=== PATIENT | male | born 1935 | race Caucasian/White ===

== ENCOUNTER 2023-11-07 12:32 | Observation (INO) ==
[2023-11-07 13:15] LABS: Basophils # (auto) 0.03 K/uL (0.00-0.20); Basophils % (auto) 0.4 %; Eosinophils # (auto) 0.13 K/uL (0.00-0.50); Eosinophils % (auto) 1.6 %; Hematocrit (blood only) 37.3 % (42.0-52.0); Hemoglobin 12.8 g/dl (14.0-18.0); Immature Granulocytes # (auto) 0.02 K/uL (0.01-0.20); Immature Granulocytes % (auto) 0.2 %; Lymphocytes # (auto) 0.94 K/uL (1.20-3.40); Lymphocytes % (auto) 11.4 %; Mean Corpuscular Hemoglobin 32.3 pg (25.0-34.0); Mean Corpuscular Hgb Conc 34.3 g/dL (32.0-36.0); Mean Corpuscular Volume 94.2 fL (80.0-100.0); Mean Platelet Volume 9.8 fL (9.4-12.4); Monocytes # (auto) 0.62 K/uL (0.11-0.59); Monocytes % (auto) 7.5 %; Neutrophils # (auto) 6.51 K/uL (1.40-6.50); Neutrophils % (auto) 78.9 %; Platelet Count 139 K/uL (130-400); RDW Coefficient of Variation 13.2 % (11.5-14.5); RDW Standard Deviation 45.7 fL (36.4-46.3); Red Blood Count 3.96 M/uL (4.70-6.10); White Blood Count 8.25 K/ul (4.8-10.8)
[2023-11-07 13:41] LABS: Albumin Level 4.1 gm/dl (3.4-5.0); Bilirubin Direct 0.2 mg/dl (0-0.2); Bilirubin,Total 0.9 mg/dl (0.2-1.0); Calcium 9.4 mg/dl (8.6-10.3); Creatinine Clr Calc Pharmacy 34.4 ml/min; Est GFR (African American) 52.8 ml/min; Est GFR (Non-African American) 45.6 ml/min; Potassium 4.4 mmol/L (3.5-5.1); Total Protein 6.8 gm/dl (6.0-8.3)
[2023-11-07 13:48] LABS: Troponin I High Sensitivity 7.2 pg/ml (0-20)
--- NOTE | 2023-11-07 13:54 | Emergency Department Note ---
Impression & Plan Weakness ED Provider Note NAME: JESSE WICK AGE: 88 SEX: M : 1935 ARRIVES VIA: Ambulance INFORMANT: Patient, ED PROVIDER(S): Karlee Dickerson MD CHIEF COMPLAINT: Weakness HPI: This is an 88-year-old male presenting for weakness. Patient is current with his daughter. He states at triage that "I feel like my body ". Nurse went to evaluate the patient the patient says is having trouble moving his arms and legs. He was nonsignificant answering questions upon my examination, just nodding yes and no. He was seen here about 2 days ago for somewhat similar symptoms including weakness and hypotension. Hypotension resolved prior to his arrival to the ER. Today patient just notes he feels weak all over. He declines any pain by shaking his head. He denies any urinary issues, constipation, chest pain, shortness of breath, fever or chills. His daughter does confirm this. ROS: See above HPI for pertinent positives & negatives. A total of 10 systems reviewed and were otherwise negative. PAST MEDICAL HISTORY: See Below PAST SURGICAL HISTORY: See Below FAMILY HISTORY: See Below SOCIAL HISTORY: See Below HOME MEDICATIONS: See Below ALLERGIES: See Below VITALS: See Below PHYSICAL EXAMINATION: General: resting comfortably in no acute distress Head: Normocephalic and atraumatic Eyes: Normal inspection, extraocular muscles intact Ear, nose, throat: Normal external exam Neck: Normal range of motion Respiratory: lungs clear to auscultation bilaterally Cardiovascular: Regular rate/rhythm, no murmur GI: soft, nontender, no guarding or rebound Extremities: nontender Neuro: Awake, shaking head yes and no, able to wiggle toes, move arms, strength 4/5 in upper extremities, 1/5 in lower extremities Skin: Warm, dry, and intact MEDICAL DECISION MAKING: This is a 88-year-old male presenting for weakness. Patient currently has no pain just overall body weakness. Patient reevaluated some hours later and he was comfortably resting. Upon awakening he is not able to move his legs more briskly, is talking in normal sentences does not appear confused. -CT head is negative -Lab work reviewed without any significant abnormalities -At this time unfortunately no clear abnormalities noted to explain his current symptoms. He does still appear fatigued and will require admission for these waxing and waning symptoms, believe patient requires further workup. Will [facility] to [facility]. Differential diagnosis: UTI, encephalopathy, sepsis, Guillain-Howard, transverse myelitis ER treatment provided: See below Diagnostics interpreted by me: ECG: None Cardiac Monitoring: An order was placed for continuous cardiac monitoring. The monitor shows a rate of 66 with sinus Laboratory studies: As stated above and show below. Imaging studies: See below. Past Med/Surg History Medical History (Updated 11/11/23 @ 10:19 by Karlee Dickerson MD) CAD (coronary artery disease) History of heparin-induced thrombocytopenia Per 05/10/22 vascular note AAA (abdominal aortic aneurysm) S/p endovascular repair (2014) with subsequent transcaval type 2 endoleak repair on 06/30/19. 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 Health record BPH (benign prostatic hyperplasia) Hyperlipidemia Hypertension Sleep apnea does not use CPAP since losing weight Kidney stone Ascending aortic aneurysm s/p ascending aorta replacement, AVR (bioprosthetic) (also had 2 vessel CABG at same time)- 10/2015 Surgical History History of cardioversion 07/2013 @ [facility] due to rapid a fib History of esophagogastroduodenoscopy (EGD) History of colonoscopy History of cardiac cath 07/2015 @ [facility]--no stents History of surgery 06/[address] [facility] [place] Embolization S/P percutaneous abdominal aortic aneurysm repair 06/[address] [facility] [place] History of thoracic aortic aneurysm repair 11/[address] [facility] [place] (same time as CABG) History of coronary artery bypass graft x 2 11/[address] [facility] [place] (with thoracic aortic aneurysm repair at same time) History of hemorrhoidectomy 11/2005 S/P AVR (aortic valve replacement) 10/[address] [facility] [place] History of arthroscopy of right knee History of lithotripsy History of tooth extraction full upper/lower denture Family History Other No family history of adverse response to anesthesia Social History Smoking Status: Never smoker Second Hand Exposure: No; Do You Dip or Chew Tobacco: No; Hx Alcohol Use: No Hx Substance Use: No Preferred Language: Algerian Communication Ability: Effective Eligibility Consultant Required: No Beliefs That Will Affect Care: None Current Living Situation: Spouse Feels Safe at Home: Yes Safety Concerns: Feels Safe At This Time Assistive Devices: None Allergies Allergies Allergy/AdvReac Type Severity Reaction Status Date / Time oxycodone Allergy Intermediate Hives in Verified 11/14/22 06:40 his throat heparin AdvReac Severe HIT Verified 11/07/23 18:24 CLAUDIA Inhibitors AdvReac Mild Cough Verified 11/14/22 06:40 Home Meds Home Medications Medication Instructions Recorded Confirmed acetaminophen 325 mg tablet 650 mg PO QID PRN Pain 11/07/22 11/07/23 aspirin 81 mg tablet 81 mg PO QAM 11/07/22 11/07/23 atorvastatin 80 mg tablet 80 mg PO HS 11/07/22 11/07/23 metoprolol succinate 25 mg 25 mg PO QAM 11/07/22 11/07/23 tablet,extended release 24 hr Results & Data (ED) Vital Signs Vital Signs - 24 hr 11/07/23 12:20 11/07/23 12:26 11/07/23 12:26 Temperature 36.6 C Temperature Source Oral Pulse Rate 68 Pulse Rate from SpO2 Sensor Respiratory Rate 14 Respiratory Effort / Characteristics Non-Labored Spontaneous Respiratory Depth Normal Normal Blood Pressure 150/121 H Blood Pressure Mean 130 Pulse Oximetry 98 96 Oxygen Delivery Method Room Air Room Air Sepsis Recent Fever Within 48 Hours No Sepsis New/Unexplained Change in Mental Status No Sepsis Action Taken by Nursing No Action Required 11/07/23 12:54 11/07/23 12:55 11/07/23 13:00 Temperature Temperature Source Pulse Rate 67 66 63 Pulse Rate from SpO2 Sensor 68 69 Respiratory Rate 10 L 15 Respiratory Effort / Characteristics Respiratory Depth Blood Pressure Blood Pressure Mean Pulse Oximetry 96 95 Oxygen Delivery Method Sepsis Recent Fever Within 48 Hours Sepsis New/Unexplained Change in Mental Status Sepsis Action Taken by Nursing 11/07/23 13:15 11/07/23 13:30 11/07/23 13:31 Temperature Temperature Source Pulse Rate 65 63 67 Pulse Rate from SpO2 Sensor 65 64 64 Respiratory Rate 19 11 L 13 Respiratory Effort / Characteristics Respiratory Depth Blood Pressure 153/101 H 161/109 H Blood Pressure Mean 118 126 Pulse Oximetry 93 95 97 Oxygen Delivery Method Sepsis Recent Fever Within 48 Hours Sepsis New/Unexplained Change in Mental Status Sepsis Action Taken by Nursing 11/07/23 14:00 11/07/23 14:30 Temperature Temperature Source Pulse Rate 67 65 Pulse Rate from SpO2 Sensor 66 66 Respiratory Rate 14 13 Respiratory Effort / Characteristics Respiratory Depth Blood Pressure 119/73 Blood Pressure Mean 88 Pulse Oximetry 95 96 Oxygen Delivery Method Sepsis Recent Fever Within 48 Hours Sepsis New/Unexplained Change in Mental Status Sepsis Action Taken by Nursing Laboratory Data 11/08/23 15:50 11/08/23 04:13 Lab Results 11/07/23 11/07/23 Range/Units 12:53 14:20 WBC 8.25 (4.8-10.8) K/ul RBC 3.96 L (4.70-6.10) M/uL Hgb 12.8 L (14.0-18.0) g/dl Hct 37.3 L (42.0-52.0) % MCV 94.2 (80.0-100.0) fL MCH 32.3 (25.0-34.0) pg MCHC 34.3 (32.0-36.0) g/dL RDW Std Deviation 45.7 (36.4-46.3) fL RDW Coeff of Soren 13.2 (11.5-14.5) % Plt Count 139 (130-400) K/uL MPV 9.8 (9.4-12.4) fL Immature Gran % (Auto) 0.2 % Neut % (Auto) 78.9 % Lymph % (Auto) 11.4 % [place] % (Auto) 7.5 % Eos % (Auto) 1.6 % Baso % (Auto) 0.4 % Neut # (Auto) 6.51 H (1.40-6.50) K/uL Lymph # (Auto) 0.94 L (1.20-3.40) K/uL [place] # (Auto) 0.62 H (0.11-0.59) K/uL Eos # (Auto) 0.13 (0.00-0.50) K/uL Baso # (Auto) 0.03 (0.00-0.20) K/uL Immature Gran # (Auto) 0.02 (0.01-0.20) K/uL Sodium 137 (136-145) mmol/L Potassium 4.4 (3.5-5.1) mmol/L Chloride 104 (98-107) mmol/L Carbon Dioxide 26 (21-32) mmol/L Anion Gap 7 (3-11) BUN 32 H (6-23) mg/dl Creatinine 1.39 (0.6-1.4) mg/dl Est Cr Clr Drug Dosing 34.4 ml/min Est GFR ( Amer) 52.8 ml/min Est GFR (Non-Af Amer) 45.6 ml/min BUN/Creatinine Ratio 23.0 H (10-20) Glucose 103 H (70-99(Fasting)) mg/dl Lactate 0.7 (0.4-2.0) mmol/L Calcium 9.4 (8.6-10.3) mg/dl Total Bilirubin 0.9 (0.2-1.0) mg/dl Direct Bilirubin 0.2 (0-0.2) mg/dl AST 14 (13-39) U/L ALT 9 (7-52) U/L Alkaline Phosphatase 81 (34-104) U/L Troponin I High Sens 7.2 D (0-20) pg/ml Total Protein 6.8 (6.0-8.3) gm/dl Albumin 4.1 (3.4-5.0) gm/dl Lipase 44 (11-82) U/L Administered Medications Discontinued Medications Aspirin (Aspirin 81 Mg Ectab) 81 mg PO QA CASANDRA Stop: 12/08/23 08:59 Last Admin: 11/08/23 08:34 Dose: 81 mg Documented By: KKS Atorvastatin Calcium (Atorvastatin 40 Mg Tab) 80 mg PO HS CASANDRA Stop: 12/07/23 20:59 Last Admin: 11/07/23 21:20 Dose: 80 mg Documented By: DMK Enoxaparin Sodium (Enoxaparin Inj 40 Mg/0.4 Ml Syr) 30 mg SQ Q24H CASANDRA Stop: 12/07/23 18:15 Last Admin: 11/08/23 04:19 Dose: Not Given Documented By: AKOSUA Gadobutrol (Gadobutrol 65ml Vial) 7.5 ml IV ONCE ONE Stop: 11/08/23 14:54 Last Admin: 11/08/23 14:54 Dose: 7.5 ml Documented By: JOHN Metoprolol Succinate (Metoprolol Succ 25mg Ext Rel Tab) 25 mg PO QAM [facility] Stop: 12/08/23 08:59 Last Admin: 11/08/23 08:34 Dose: 25 mg Documented By: DOLLY Terazosin HCl (Terazosin Hcl 5 Mg Cap) 5 mg PO HS CASANDRA Stop: 12/07/23 20:59 Last Admin: 11/07/23 21:20 Dose: 5 mg Documented By: AKOSUA Imaging Data Radiologist's Impression: Head CT 11/07/23 13:22 CT SCAN OF THE BRAIN WITHOUT IV CONTRAST CLINICAL HISTORY: Generalized weakness. Change in mental status. COMPARISON STUDY: No priors. TECHNIQUE: Unenhanced axial CT scan of the brain is performed from the vertex to the skull base. A dose lowering technique was utilized adhering to the principles of ALARA. CT DOSE: 547.75 mGy.cm FINDINGS: Brain parenchyma: There is age-related involutional change noting [id number] subcortical and periventricular microangiopathic disease. There is no hemorrhage, mass effect, or evidence of acute territorial ischemia by CT criteria. 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 Anders-white matter differentiation is preserved. No extra-axial fluid collection is seen. Ventricles, sulci, cisterns: Prominent secondary to involutional change. Intracranial vasculature: There is atherosclerotic calcification of the cavernous carotid arteries. Calvarium: Unremarkable. Sinuses and mastoids: The visualized paranasal sinuses are clear. The mastoid air cells are well pneumatized. Orbits: The bony orbits are grossly intact. IMPRESSION: There is no hemorrhage, mass effect, or evidence of acute territorial ischemia by CT criteria. ACT 112: Negative or not required by law. Electronically signed by: Jose Garcia M.D. 11/07/2023 2:13 PM Discharge Plan Visit Data Chief Complaint: Weakness Stated Complaint: UNABLE TO MOVE ED Provider: Karlee Dickerson Discharge Problem: Weakness Patient Disposition: Admitted As Inpatient Discharge Instructions Interventions: ED Discharge Assessment Last Done: 11/07/23 17:29
--- NOTE | 2023-11-07 14:14 | CT Scan Report ---
CT SCAN OF THE BRAIN WITHOUT IV CONTRAST CLINICAL HISTORY: Generalized weakness. Change in mental status. COMPARISON STUDY: No priors. TECHNIQUE: Unenhanced axial CT scan of the brain is performed from the vertex to the skull base. A do se lowering technique was utilized adhering to the principles of ALARA. CT DOSE: 547.75 mGy.cm FINDINGS: Brain parenchyma: There is age-related involutional change noting [id number] subcortical and pe riventricular microangiopathic disease. There is no hemorrhage, mass effect, or evidence of acute ter ritorial ischemia by CT criteria. A small chronic lacunar infarct is noted in the left cerebellar hem isphere. Anders-white matter differentiation is preserved. No extra-axial fluid collection is seen. Ventricles, sulci, cisterns: Prominent secondary to involutional change. Intracranial vasculature: There is atherosclerotic calcification of the cavernous carotid arteries. Calvarium: Unremarkable. Sinuses and mastoids: The visualized paranasal sinuses are clear. The mastoid air cells are well pneu matized. Orbits: The bony orbits are grossly intact. IMPRESSION: There is no hemorrhage, mass effect, or evidence of acute territorial ischemia by CT ter[place]. ACT 112: Negative or not required by law. Electronically signed by: Jose Garcia M.D. 11/07/2023 2:13 PM
--- NOTE | 2023-11-07 15:33 | History & Physical Report ---
Date of Service November 07, 2023 Assessment & Plan (1) Weakness: Plan: Ambulatory dysfunction Patient is 88-year-old male with PMH HTN, dyslipidemia, CAD s/p CABG, CKD III, AAA s/p repair, MARY, BPH, RBBB, history aortic valve replacement, history of atrial fibrillation s/p cardioversion, and others as below presented to ER with complaint of weakness. Upon arrival to ER staff report patient was able to move upper extremities however appeared very weak, and was only able to wiggle his toes and feet and was unable to lift his legs off the bed. During ER course patient now able to move all of extremities and feels is close to his baseline. He ambulated to bathroom with nurse without assistance. In ER vitals stable. No significant electrolyte abnormality. High-sensitivity troponin negative. 11/05/2023 TSH: 0.9 CT head: There is no hemorrhage, mass effect, or evidence of acute territorial ischemia by CT criteria. Obtain CXR to r/o pneumonia UA pending Blood cultures pending R/O TIA, CVA Tele to monitor for arrhythmias Lipids, A1c, CBC, BMP in a.m. MRI brain Ultrasound carotids carotids Echo with bubble study Fall precautions, aspiration precautions PT/OT consult Continue aspirin, atorvastatin Neurology consult (2) Hypertension: Plan: Stable Continue metoprolol succinate (3) Hyperlipidemia: Plan: Continue atorvastatin (4) CAD (coronary artery disease): Plan: S/P CABG Continue aspirin, atorvastatin, metoprolol succinate (5) Stage 3 chronic kidney disease: Plan: Cr: 1.39. Baseline 1.2 Monitor renal functions, avoid nephrotoxic agents for possible (6) Carotid stenosis, bilateral: Plan: 50-69% of the right ICA; <50% stenosis of the left ICA per 12/2021 carotid duplex Carotid duplex pending (7) BPH (benign prostatic hyperplasia): Plan: Continue terazosin (8) AAA (abdominal aortic aneurysm): Plan: S/P endovascular repair (2014) with subsequent transcaval type 2 endoleak repair on 06/30/19. DVT Prophylaxis SCDs DNR/DNI as per discussion with pt Follows with Dr Multani for routine care Pt was seen and care coordinated with Dr Miller. See addendum I spent a total of 76 minutes reviewing notes, outpatient records, labs, medication, coordinating, documenting and providing care for this patient excluding time spent in the performance of separately billed services. History of Present Illness Chief Complaint: Weakness Primary Care Provider: John Multani MD Patient is 88-year-old male with PMH HTN, dyslipidemia, CAD s/p CABG, CKD III, AAA s/p repair, MARY, BPH, RBBB, history aortic valve replacement, history of atrial fibrillation s/p cardioversion, and others as below presented to ER with complaint of weakness. History obtained from patient, patient's daughter, outpatient chart review. On 11/05/2023 patient was seen in urgent care for lightheadedness nausea and recorded BP there was 70/38 and patient was referred to ER. Was seen at [facility] ER on 11/05/2023 was given 500 mL NSS and BPs had improved after IVF and chest x-ray was without pneumonia, UA not consistent with infection, negative SARS-CoV-2, influenza and RSV PCR. Patient was discharged home. Patient states has been feeling at his baseline. Patient states woke up this morning and felt "wiped out". He was able to get himself dressed. He states he walked to his reclining chair. States when walking to chair felt a little lightheaded and had some nausea. Patient states that there a while and w as unable to move his legs to get up. He lives at home with elderly . Reports they called daughter who then called EMS. Upon arrival to ER staff report patient was able to move upper extremities however appeared very weak, and was only able to wiggle his toes and feet and was unable to lift his legs off the bed. Patient denies headache, vision changes, speech changes, dysphagia. He did not see any extremity pain. During ER course patient now able to move all of extremities and feels is close to his baseline. He ambulated to bathroom with nurse without assistance. Last BM couple days ago. Denies fever/chills, diaphoresis, vomiting, diarrhea, ROUSE, dizziness, syncope, neck pain, CP, SOB, orthopnea, palpitations, cough, sore throat, rhinorrhea, abdominal pain, paresthesias, extremity edema, rashes, urinary symptoms. Allergies Allergy/AdvReac Type Severity Reaction Status Date / Time oxycodone Allergy Intermediate Hives in Verified 11/14/22 06:40 his throat heparin AdvReac Severe HIT Verified 11/07/23 18:24 CLAUDIA Inhibitors AdvReac Mild Cough Verified 11/14/22 06:40 Home Medications Medication Instructions Recorded Confirmed Type acetaminophen 325 mg tablet 650 mg PO QID PRN Pain 11/07/22 11/07/23 History aspirin 81 mg tablet 81 mg PO QAM 11/07/22 11/07/23 History atorvastatin 80 mg tablet 80 mg PO HS 11/07/22 11/07/23 History metoprolol succinate 25 mg 25 mg PO QAM 11/07/22 11/07/23 History tablet,extended release 24 hr terazosin 5 mg capsule 5 mg PO HS 11/07/22 11/07/23 History tramadol 50 mg tablet 50 mg PO Q6H PRN Pain 11/07/22 11/07/23 History Past Med/Surg History Medical History (Updated 11/07/23 @ 17:39 by Tomeka Boswell PA-C) CAD (coronary artery disease) History of heparin-induced thrombocytopenia Per 05/10/22 vascular note AAA (abdominal aortic aneurysm) S/p endovascular repair (2014) with subsequent transcaval type 2 endoleak repair on 06/30/19. 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 [facility] assessment 2018 anesthesia record from [facility] 2018 showed Grade I view with Glidescope #4 Carotid stenosis, bilateral 50-69% of the right ICA; <50% stenosis of the left ICA per 12/2021 carotid duplex History of atrial fibrillation 2012 had cardioversion Poor historian pt unable to answer health care questions correctly, information obtained from [facility] record BPH (benign prostatic hyperplasia) Hyperlipidemia Hypertension Sleep apnea does not use CPAP since losing weight Kidney stone Ascending aortic aneurysm s/p ascending aorta replacement, AVR (bioprosthetic) (also had 2 vessel CABG at same time)- 10/2015 Surgical History History of cardioversion 07/2013 @ [facility] due to rapid a fib History of esophagogastroduodenoscopy (EGD) History of colonoscopy History of cardiac cath 07/2015 @ [facility]--no stents History of surgery 06/2019 @ [facility] [place] Embolization S/P percutaneous abdominal aortic aneurysm repair 06/2015 @ [facility] [place] History of thoracic aortic aneurysm repair 11/2015 @ [facility] [place] (same time as CABG) History of coronary artery bypass graft x 2 11/2015 @ [facility] [place] (with thoracic aortic aneurysm repair at same time) History of hemorrhoidectomy 11/2005 S/P AVR (aortic valve replacement) 10/2015 @ [facility] [place] History of arthroscopy of right knee History of lithotripsy History of tooth extraction full upper/lower denture Family History Other No family history of adverse response to anesthesia Social History Smoking Status: Never smoker Second Hand Exposure: No; Do You Dip or Chew Tobacco: No; Hx Alcohol Use: No Hx Substance Use: No Preferred Language: Bolivian Communication Ability: Effective Health Commissioner Required: No Beliefs That Will Affect Care: None Current Living Situation: Spouse Feels Safe at Home: Yes Safety Concerns: Feels Safe At This Time Assistive Devices: Denture - Upper, Glasses and Hearing Aid - Bilateral Review of Systems Review of Systems: All systems reviewed & are unremarkable except as noted in HPI & below Physical Exam Physical Exam: General: no distress, WDWN Head: normocephalic, atraumatic Eyes: PERRL, EOM's intact, conjunctiva non-injected, anicteric ENT: +hard of hearing, normal inspection external ears, nose, mucous membranes moist Neck: supple, trachea midline Lungs: clear, no respiratory distress, no wheezing/rhonchi/rales CV: RRR, no murmur, no pretibial edema Abd: normal BS, soft, non-tender Ext: no cyanosis, no calf tenderness Neuro: A&O x 3, normal affect, no nystagmus, facial sensation is intact and symmetric, face is strong and symmetric, soft palate elevates symmetrically, no dysarthria, shoulder shrug intact, tongue is midline, normal movement, no fasciculations. BUE 4/5 strength bilaterally, BLE 4/5 strength bilaterally, sensation to light touch intact Skin: warm, dry Results & Data Results & Data Vital Signs (Past 12 Hours) Vital Signs Temp Pulse Resp BP Pulse Ox O2 Del Method 11/07/23 14:30 65 13 119/73 96 11/07/23 14:00 67 14 95 11/07/23 13:31 67 13 161/109 H 97 11/07/23 13:30 63 11 L 95 11/07/23 13:15 65 19 153/101 H 93 11/07/23 13:00 63 15 95 11/07/23 12:55 66 11/07/23 12:54 67 10 L 96 11/07/23 12:26 96 Room Air 11/07/23 12:20 36.6 C 68 14 150/121 H 98 Room Air Laboratory Results Short CBC 11/07/23 Range/Units 12:53 WBC 8.25 (4.8-10.8) K/ul Hgb 12.8 L (14.0-18.0) g/dl Hct 37.3 L (42.0-52.0) % Plt Count 139 (130-400) K/uL BMP 11/07/23 12:53 Sodium 137 Potassium 4.4 Chloride 104 Carbon Dioxide 26 BUN 32 H Creatinine 1.39 Glucose 103 H Calcium 9.4 Liver Function 11/07/23 Range/Units 12:53 Total Bilirubin 0.9 (0.2-1.0) mg/dl Direct Bilirubin 0.2 (0-0.2) mg/dl AST 14 (13-39) U/L ALT 9 (7-52) U/L Alkaline Phosphatase 81 (34-104) U/L Albumin 4.1 (3.4-5.0) gm/dl Diagnostic Findings Head CT 11/07/23 13:22 CT SCAN OF THE BRAIN WITHOUT IV CONTRAST CLINICAL HISTORY: Generalized weakness. Change in mental status. COMPARISON STUDY: No priors. TECHNIQUE: Unenhanced axial CT scan of the brain is performed from the vertex to the skull base. A dose lowering technique was utilized adhering to the principles of ALARA. CT DOSE: 547.75 mGy.cm FINDINGS: Brain parenchyma: There is age-related involutional change noting [id number] subcortical and periventricular microangiopathic disease. There is no hemorrhage, mass effect, or evidence of acute territorial ischemia by CT criteria. 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 Anders-white matter differentiation is preserved. No extra-axial fluid collection is seen. Ventricles, sulci, cisterns: Prominent secondary to involutional change. Intracranial vasculature: There is atherosclerotic calcification of the cavernous carotid arteries. Calvarium: Unremarkable. Sinuses and mastoids: The visualized paranasal sinuses are clear. The mastoid air cells are well pneumatized. Orbits: The bony orbits are grossly intact. IMPRESSION: There is no hemorrhage, mass effect, or evidence of acute territorial ischemia by CT criteria. ACT 112: Negative or not required by law. Electronically signed by: Jose Garcia M.D. 11/07/2023 2:13 PM ECG Additional Comments: Sinus rhythm, PAC, RBBB, Nonspecific T wave abnormality anterior leads Supervising Physician Co-Signing Physician Notes Pt was seen and examined by myself, Mikala Miller MD on the day of service. Care was coordinated with Tomeka Boswell PA-C. 88yoM presenting with recurrent episodes of hypotension. Daughter at bedside notes that there might be a component of inadequate po intake at home. Orthostatic vitals added, continue with brain MRI and carotid dopplers. PT/OT Neurology consulted- appreciate further recs. Otherwise as above. I spent a total [id number] coordinating, documenting, and providing care for this patient excluding time spent in the performance of separately billed services
--- NOTE | 2023-11-07 16:21 | Electrocardiogram Report ---
Test Reason : Blood Pressure : / mmHG Vent. Rate : 067 BPM Atrial Rate : 067 BPM P-R Int : 138 ms QRS Dur : 120 ms QT Int : 426 ms P-R-T Axes : 030 -24 033 degrees QTc Int : 450 ms Sinus rhythm with Premature atrial complexes Low voltage QRS Right bundle branch block Abnormal ECG When compared with ECG of 05-NOV-2023 16:40, Premature atrial complexes are now Present Nonspecific T wave abnormality now evident in Anterior leads Confirmed by Nirav Hodgson ([id number]) on 11/07/2023 4:21:17 PM Referred By: REFERRED SELF Confirmed By:Nirav Hodgson
[2023-11-07] MEDS ORDERED: PHARMACIST DISCHARGE MED REC CONSULT PRN ×2 (18:16)
[2023-11-07] MEDS ORDERED: POLYETHYLENE (MIRALAX) 17 GM PACK PO PRN (18:16)
[2023-11-07] MEDS ORDERED: ACETAMINOPHEN 325 MG TAB PO PRN (18:16)
[2023-11-07] MEDS ORDERED: ONDANSETRON INJ 2 MG/ML 2 ML VIAL IV PRN (18:16)
[2023-11-07 20:18] LABS: Appearance Urine Clear (Clear); Bacteria Urine Automated Negative (Negative); Bilirubin Urine Negative (Negative); Blood Urine 1+ (Negative); Color Urine Yellow; Epithelial Cell Urine Auto 0-5 /lpf (0-5); Glucose Urine UA Negative (Negative); Ketones Urine Negative (Negative); Leukocyte Esterase Urine Negative (Negative); Nitrite Urine Negative (Negative); Protein Urine Negative (Negative); Specific Gravity Urine 1.019 (1.000-1.030); Urobilinogen Urine Negative (Negative); WBC Urine Automated 0 /hpf (0-5)
[2023-11-07] MEDS: ATORVASTATIN 40 MG TAB PO SCH (21:20)
[2023-11-07] MEDS: TERAZOSIN HCL 5 MG CAP PO SCH (21:20)
[2023-11-08] MEDS: ENOXAPARIN INJ 40 MG/0.4 ML SYR SQ SCH (04:19)
--- OUTSIDE RECORDS SUMMARY | 2023-11-08 04:27 | External Medical Summary | Summary of Care ---
Author Name Unknown Organization [facility] Address [address] [place] [address] Phone [phone] Care Team Providers Care Fire Investigation Manager Name Role Phone John Multani MD Primary Care Provider + Reason for Visit * Reason Comments Lightheadedness Encounter Details Date Type Department Care Team (Latest Contact Info) Description 11/05/2023 4:45 PM EDT Convenient Care Visit [facility] [address] [place] [address] Junior Betts PA-C [address] [place] [address] Lightheaded*; Hypotension, unspecified hypotension type Allergies Active Allergy Reactions Criticality Noted Date Comments Pavel Inhibitors Cough Low 06/02/2010 Heparin 10/26/2015 HIT Percocet Edema airway,Hives High 11/17/1999 Reports "hives of the airway" with difficulty breathing with Percocet. documented as of this encounter (statuses as of 11/05/2023) Medications Medication Sig Dispensed Refills Start Date End Date Status ASPIRIN 81 MG PO TABS 1 tab daily with food 0 Active amoxicillin (AMOXIL) 500 MG CapsuleIndications:SB E (subacute bacterial endocarditis) prophylaxis candidate Take 4 pills by mouth 30-60 minutes prior to dental work 4 Cap 3 02/23/2016 Active CPAP every night at bedtime. 0 Active Terazosin HCl 5 MG Oral Capsule (Hytrin)Indications:I ncomplete bladder emptying,BPH with obstruction/lower urinary tract symptoms Take 1 Capsule by mouth at bedtime. 90 Capsule 3 10/25/2022 Active Metoprolol Succinate ER 25 MG Oral Tablet Extended Release 24 Hour (toPROL XL)Indications:Thorac ic ascending aortic aneurysm (HCC),Chronic ischemic heart disease One tablet by mouth daily 90 Tablet 3 11/13/2022 Active oxyCODONE-Acetaminoph en 5-325 MG Oral Tablet (Percocet) 1 TAB orally every 6 hours As Needed for pain 20 Tablet 0 11/14/2022 Active COVID-19 mRNA Vaccine 12 years and above Pfizer 30 MCG/0.3 ML IM SUSP Inject into a large muscle. 0.3 mL 0 05/22/2023 Active Atorvastatin Calcium 80 MG Oral Tablet (Lipitor)Indications: Dyslipidemia, goal LDL below 100 Take 1 Tablet by mouth every afternoon. 90 Tablet 1 07/30/2023 Active traMADol HCl 50 MG Oral Tablet (Ultram)Indications:P ain,Spinal stenosis of lumbar region, unspecified whether neurogenic claudication present Take 1 Tablet by mouth every 6 hours as needed for Pain, Severe. 90 Tablet 0 09/04/2023 Active Hospital, Clinic, or Other Facility Administered Medication Ordered Dose Route Frequency Start Date End Date Status NSS 0.9% 1,000 mL bolus infusionIndications:Lighthe aded,Hypotension, unspecified hypotension type 1000 mL IV ONCE 11/05/2023 11/06/2023 Active documented as of this encounter (statuses as of 11/05/2023) Active Problems Problem Noted Date Diagnosed Date Status post endovascular aneurysm repair (EVAR) 05/23/2023 Inguinal adenopathy 10/04/2022 Groin pain, right 10/04/2022 RBBB (right bundle branch block) 10/02/2022 Chronic kidney disease, stage 3a 12/21/2020 Overview: Per CKD protocol 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 John Vazquez (Jasbir Grain) is grandson. S/P percutaneous abdominal aortic aneurysm repai r 11/16/2017 SBE (subacute bacterial endocarditis) prophylaxi s candidate 02/23/2016 S/P thoracic aortic aneurysm repair 11/19/2015 S/P CABG x 2 11/19/2015 S/P AVR (aortic valve replacement) 11/09/2015 Difficult intubation 10/31/2015 History of heparin-induced thrombocytopenia 03/2016 BPH with obstruction/lower urinary tract symptom s 05/06/2015 PAVEL inhibitor intolerance 05/06/2015 Spermatocele 02/25/2014 History of atrial fibrillation 08/06/2013 Overview: [facility]: DC cardioversion back to NSR, associated with GI bleed CPAP (continuous positive airway pressure) gabriella andrade 10/27/2012 MARY (obstructive sleep apnea) 07/30/2012 Overview: RDI on baseline 05/16/12 was 61. Desaturations to 67% during REM, DME PREFABRICATOR, CPAP set at 14 cm C Flex at 2 Hypoxia, sleep related 06/04/2012 Essential hypertension with goal blood pressure less than 140/90 05/12/2010 Metabolic syndrome 07/23/2009 DYSLIPIDEMIA, GOAL LDL BELOW 100 07/22/2009 Overview: Per Lipid Taxonomy. Hyperpotassemia 05/21/2009 CHR ISCHEMIC HRT DIS NOS 04/08/2009 Overview: PAVEL intolerant. ADVANCE DIRECTIVE INFORMATION 10/15/2007 Overview: Yes, Patient instructed to provide copy of advance directive for provider to review and to be scanned into Electronic Medical Record AAA (abdominal aortic aneurysm) documented as of this encounter (statuses as of 11/05/2023) Resolved Problems Problem Noted Date Diagnosed Date Resolved Date Endoleak of aortic graft 06/30/2019 Hypertensive kidney disease with chronic kidney disease stage III 11/07/2018 06/24/2020 Overview: Per CKD protocol Kidney disease, chronic, sta ge III (GFR 30-59 ml/min) 01/22/2018 12/25/2018 Overview: Per CKD protocol #1 Gouty arthropathy 11/16/2017 11/16/2017 Overview: error Hypertrophy of prostate with urinary obstruction and other lower urinary tract symptoms (LUTS) 02/25/2014 05/06/2015 Pre-operative cardiovascular examination 05/14/2013 06/16/2016 PAVEL inhibitor intolerance 06/02/2010 Overview: Lisinopril caused cough Severe obesity with body mas s index (BMI) of 35.0 to 39.9 with serious comorbidity 11/08/2009 Overview: Per Obesity Taxonomy ICD-10 update of inactive diagnosis Dyslipidemia, goal to be determined 04/28/2009 07/22/2009 Overview: Per Lipid Taxonomy. HTN, goal below 140/90 08/24/200405/12 History of colonic polyps 09/03/2002 Overview: Repeat 2008 ICD-10 update of inactive term ELEV BL PRES W-O HYPERTN 07/09/200207/2004 Overview: has hypertension Positive hemoccult time three 07/09/2002 09/03/2002 Chronic rhinitis 12/03/2000 12/15/2016 Obstructive sleep apnea 10/04/2000 1111/2015 OBESITY, UNSPECIFIED 10/04/2000 010 Overview: Per Obesity Taxonomy Calculus of kidney 9 Thoracic ascending aortic aneurysm 11/16/2017 documented as of this encounter (statuses as of 11/05/2023) Immunizations Name Administration Dates Next Due COVID-19 mRNA, LNP-s, No Pre serve, 2-Dose Series (Moderna) 09/08/2020 COVID-19, MRNA-LNP, 23-24, P F, 30 MCG/0.3 mL, 12 YRS AND ABOVE, IM (PFIZER-Comirnaty) 05/23/2023 Covid-19, Mrna, Lnp-s, Pf, B ivalent, 30 Mcg, IM, 12 yrs and above (Pfizer) 05/26/2022 H1N1 2009 Influenza, IM 09/07/2009 Pneumococcal Conjugate Vacc, 13 Valent (Prevnar) 05/06/2015 Pneumococcal Polysaccharide PPV23 (Pneumovax) 06/24/2007 Season Influenza, Quad, PF, Adjuvanted, 65+ Yrs, IM (FLUAD) 05/21/2020 Seasonal Influenza, PF, 6 M & above, IM , (FluLaval or Fluzone) 06/05/2018,06/01/2017 Seasonal Influenza, Quadriva lent Hd (Fluzone Hd) 05/03/2023,05/09/2022,06/07/2021 Seasonal Influenza, Quadriva lent, No Preserve, IM 06/16/2016,06/15/2015 Seasonal Influenza, Split, I IV3, With Preserve, Inj 07/06/2014,07/03/2013,04/24/2012,06/01,05/12/2010,05/20/2009,06/25/2008 ,06/24/2007,06/08/2006 Seasonal Influenza, Trivalen t, Adjuvanted, 65+ yrs 05/10/2019 TDAP (age 10 and older)(Boostrix) 11/11/2021 TDAP (age 11 and older)(Adacel) 10/09/2011 Varicella Zoster Vaccine (Adult) 06/27/2012 Zoster Vaccine Recombinant (Shingrix) 07/24/2019 ,05/23/2019 documented as of this encounter Social History Tobacco Use Types Packs/Day Years Used Date Smoking Tobacco: Never Passive Smoke Exposure: Yes Smokeless Tobacco: Former Chew Quit: 08/13/1989 Comments:used to chew, uses a soybean chew Alcohol Use Standard Drinks/Week Comments Yes 0 (1 standard drink = 0.6 oz pur e alcohol) occ. social, no beer x 8 weeks PHQ-2 Answer Date Recorded PHQ-2 Score 0 05/22/2019 Hunger Vital Sign Answer Date Recorded Worried About Running Out of Food in the Last Ye ar Never true 05/22/2019 Ran Out of Food in the Last Year Never true 05/22/2019 Sex and Gender Information Value Date Recorded Sex Assigned at Not on file Gender Identity Not on file Sexual Orientation Not on file Job Start Date Occupation Industry Not on file Not on file Not on file documented as of this encounter Last Filed Vital Signs Vital Sign Reading Time Taken Comments Blood Pressure 70/38 11/05/2023 3:38 PM EDT Pulse 80 11/05/2023 3:38 PM EDT Temperature - - Respiratory Rate 18 11/05/2023 3:38 PM EDT Oxygen Saturation 96% 11/05/2023 3:38 PM EDT Inhaled Oxygen Concentration - - Weight 76.2 kg (168 lb) 11/05/2023 3:38 PM EDT Height 170.2 cm (5' 7") 11/05/2023 3:38 PM EDT Body Mass Index 26.31 11/05/2023 3:38 PM EDT documented in this encounter Functional Status Functional Status Response Date of Assess ment Are you deaf or do you have serious difficulty h earing? No 10/25/2015 Are you blind or do you have serious difficulty seeing, even when wearing glasses? No 10/25/2015 Do you have serious difficul ty walking or climbing stairs? (5 years old or older) No 10/25/2015 Do you have difficulty dress ing or bathing? (5 years old or older) No 10/25/2015 Because of a physical, menta l, or emotional condition, do you have difficulty doing errands alone such as visiting a doctor s office or shopping? (15 years old or older) No 10/25/19 16 Cognitive Status Response Date of Assessm ent Because of a physical, menta l, or emotional condition, do you have serious difficulty concentrating, remembering, or making decisions? (5 years old or older) No 10/25/2015 documented as of this encounter Progress Notes * Junior Betts PA-C - 11/05/2023 4:42 PM EDT Nursing Notes: Pily Flores, LAURENT 11/05/23 1543 Signed Patient presents to the clinic for evaluation. Patient reports feeling light headedness and nausea along with, "bugs crawling on my skin". These symptoms started at 0400. Gustavo Linares is a 88 year old male with a PMH of hyperpotassemia, MARY on CPAP, HTN, AAA, Carotid stenosis, RBBB, CKD3a, S/P AVR, S/P Thoracic abdominal aorita aneurysm repair, s/p CABG x 2 that presents for Lightheadedness Dizziness Quality: Lightheadedness Severity: Moderate Onset quality: Unable to specify Duration: 1 day Timing: Constant Progression: Waxing and waning Chronicity: New Context: not when bending over, not with bowel movement, not with ear pain, not with eye movement, not with head movement, not with inactivity, not with loss of consciousness, not with medication, not with physical activity, not when standing up and not when urinating Relieved by: Nothing Worsened by: Nothing Ineffective treatments: Fluids Associated symptoms: nausea and weakness Associated symptoms: no blood in stool, no chest pain, no diarrhea, no headaches, no hearing loss, no palpitations, no shortness of breath, no syncope, no tinnitus, no vision changes and no vomiting Associated symptoms comment: And see nurse note Objective BP 70/38 (BP Site: Left Arm, BP Position: Sitting, BP Cuff Size: Regular) | Pulse 80 | Resp 18 | Ht1.702 m (5' 7") | Wt 76.2 kg (168 lb) | SpO2 96% | BMI 26.31 kg/m | BSA 1.9 m Body mass index is 26.31 kg/m. BP Readings from Last 3 Encounters: 11/05/23 70/38 05/23/23 122/60 10/24/22 95/67 Wt Readings from Last 3 Encounters: 11/05/23 76.2 kg (168 lb) 05/23/23 78.9 kg (174 lb) 10/24/22 74.8 kg (165 lb) Physical Exam Vitals and nursing note reviewed. Constitutional: General: He is not in acute distress. Appearance: Normal appearance. He is not ill-appearing, toxic-appearing or diaphoretic. HENT: Head: Normocephalic and atraumatic. Right Ear: External ear normal. Left Ear: External ear normal. Nose: Nose normal. No congestion or rhinorrhea. Mouth/Throat: Mouth: Mucous membranes are moist. Pharynx: Oropharynx is clear. No oropharyngeal exudate or posterior oropharyngeal erythema. Eyes: General: No scleral icterus. Extraocular Movements: Extraocular movements intact. Conjunctiva/sclera: Conjunctivae normal. Pupils: Pupils are equal, round, and reactive to light. Neck: Vascular: No carotid bruit. Cardiovascular: Rate and Rhythm: Normal rate and regular rhythm. Heart sounds: No murmur heard. No friction rub. No gallop. Pulmonary: Effort: Pulmonary effort is normal. No respiratory distress. Breath sounds: No wheezing, rhonchi or rales. Chest: Chest wall: No tenderness. Abdominal: General: Abdomen is flat. Bowel sounds are normal. There is no distension. Palpations: Abdomen is soft. Tenderness: There is no abdominal tenderness. There is no guarding or rebound. Musculoskeletal: General: No swelling or tenderness. Normal range of motion. Cervical back: Normal range of motion and neck supple. No rigidity. No muscular tenderness. Right lower leg: No edema. Left lower leg: No edema. Lymphadenopathy: Cervical: No cervical adenopathy. Skin: General: Skin is warm and dry. Capillary Refill: Capillary refill takes less than 2 seconds. Neurological: General: No focal deficit present. Mental Status: He is alert and oriented to person, place, and time. Motor: Weakness present. Gait: Gait abnormal. Psychiatric: Mood and Affect: Mood normal. Behavior: Behavior normal. Thought Content: Thought content normal. Judgment: Judgment normal. Results for orders placed or performed in visit on 11/05/23 GLUCOSE METER, POINT OF CARE (ENTER/EDIT) Result Value Ref Range Glucose Meter Result 155 70 - 120 mg/dL *Note: Due to a large number of results and/or encounters for the requested time period, some results have not been displayed. A complete set of results can be found in Results Review. Assessment and plan 1. Lightheaded - EKG; Future - GLUCOSE METER, POINT OF CARE (ENTER/EDIT) - EKG - NSS 0.9% 1,000 mL bolus infusion 2. Hypotension, unspecified hypotension type - EKG; Future - GLUCOSE METER, POINT OF CARE (ENTER/EDIT) - EKG - NSS 0.9% 1,000 mL bolus infusion Symptomatic hypotension. EMS called for further work-up and treatment at ER. To be transferred via EMS. EKG done today shows NSR with "sinus arrhythmia at rate of [address] changes, but T wave amplitude in latera leads. RSR' in V1 suggests R ventricular conduction delay. Inferior infarct, age undetermined. When compared to EKG on 09/2022, RSR' pattern in V1 has replaed RBBB. Nonspecific T wave abnormalitynow evident in anterior leads. T wave amplitude has increased in latera leads. Unclear if 2/2 heart, poor PO intake, or other etiology Recheck of VS showed BP 60/38, worsening weakness. Will start NSS bolus. EMS arrived prior to IV start being completed. Report given and care transferred. Follow up To ER Via EMS The above was discussed and understanding was expressed. Junior Betts PA-C documented in this encounter Nursing Notes * Pily Flores LPN - 11/05/2023 3:41 PM EDT Patient presents to the clinic for evaluation. Patient reports feeling light headedness and nausea along with, "bugs crawling on my skin". These symptoms started at 0400. documented in this encounter Plan of Treatment Upcoming Encounters Date Type Department Care Team (Late st Contact Info) Description 12/21/2023 10:00 AM EDT Office Visit Family Practice [facility] [address] [facility] [place] [address] Lizeth Biggs CRNP [address] [facility] [place] [address] 12/21/2023 10:40 AM EDT Laboratory Laboratory, [facility] [address] [facility] [place] [id number] [place]ri[place] seo [facility] [address] [facility] [place] [address] Scheduled Orders Name Type Priority Associated Diagnoses Orde r Schedule EKG EKG STAT Lightheaded Hypotension, unspecified hypotension type Expected: 11/05/2023, Expires: 12/06/2023 Health Maintenance Due Date Last Done Comments Albumin/Creatinine Ratio 1953 Depression Screening 05/22/2020 05/22/2019, 12/15/2016 (Declined) CKD PHOS USE SMARTSET 84914 07/18/2022 07/18/2021, 1 CKD HGB USE SMARTSET 70083 10/04/202310/04, 10/04/2022, 11/08/2021, Additional history exists DTaP,Tdap,and Td Vaccines (3 - Td or Tdap) 11/12/2031 11/11/2021, 10/09/2011, 11/17/1999 Pneumococcal Vaccine: 65+ Years Completed 05/06/2015, 06/24/2007, 08/24/1998 Zoster Vaccines Completed 07/24/2019, 05/13, 06/27/2012 Influenza Vaccine (FLU shot) Completed , 05/09/2022, 06/07/2021, Additional history exists COVID-19 Vaccine Completed 05/23/2023, , 09/08/2020 GARDASIL-HPV IMMUNIZATION SERIES Aged Out No longer eligible based on patient's age to complete this topic Hepatitis B Aged Out No longer eligi ble based on patient's age to complete this topic MENINGOCOCCAL (MENACTRA/MENVEO) Aged Out No longer eligible based on patient's age to complete this topic documented as of this encounter Medical Devices Implanted Type Area Pre K Lead Teacher Device Identifier Shelf Expiration Date Model / Serial / Lot Graft Bifur [id number] - [id number] - [id number] Implanted:Qty: 1 on 07/01/2015 [place] [facility] [place] Aorta MEDTRONIC : VASCULAR 07/14/2016 [id number] / [id number] / Description:Bifurcated graft aorta to right iliac Limb Contralat [id number] - [id number] - [id number] Implanted:Qty: 1 on 07/01/2015 [place] Mark[place] Rice [place] [facility] [place] Left: Iliac [employer] : VASCULAR 08/31/2016 [id number] / [id number] / Marker Coronary Am-Sd - [id number] Implanted:Qty: 1 on 10/25/2015 by Freddy Ernandez [place] [facility] [place]: Aorta [employer] 08/12/2018 AM-SD / / [id number] Sut Steel 6 M654g - [id number] Implanted:Qty: 4 on 10/25/2015 by Freddy Ernandez [place] [facility] [place]A: Sternum JNJ : [employer] 06/12/2020 M65 4G / / [id number] Graft Gelweave 8x15 066923 - [id number] - [id number] Implanted:Qty: 1 on 10/25/2015 by Freddy Ernandez [place] [facility] [place]A: Innominate Artery [employer] : CARDIO SYS 09/12/2020 [id number] / [id number] / [id number] Description:portion used [place] Ptfe 6x6in X5 - [id number] Implanted:Qty: 1 on 10/25/2015 by Freddy Ernandez [place] [facility] [place]A: Aorta CR BARD : PERIPHERAL VASCULAR 01/11/2020 [id number] / / [id number] Description:portion used Valve Heart Aortic Epic 25mm - [id number] - [id number] Implanted:Qty: 1 on 10/25/2015 by Freddy Ernandez [place] [facility] [place] N/A: Aorta ST RHETT : CARDIOVASCULAR 01/16/2019 [id number] 5-00 / [id number] / Graft Gelweave 30x10 690951 - [id number] - [id number] Implanted:Qty: 1 on 10/25/2015 by Freddy Ernandez [place] [facility] [place]: Aorta [employer] : CARDIO SYS 05/12/2020 [id number] / [id number] / [id number] Description:portion used Coil Azur .035 51sfh01tg - [id number] Implanted:Qty: 1 on 06/30/2019 by Marky Rice [place] [facility] [place]A: Aorta [employer] CHANTAL [id number] 04/12/2024 45-07800 0 / / [id number] G Azur 35 Detachable 35mm 39cm - [id number] Implanted:Qty: 1 on 06/30/2019 by Marky Rice [place] [facility] [place]A: Aorta [employer] CHANTAL [id number] 01/10/2023 [id number] 9 / / [id number] Azur 35 Detachable 35mm 39cm - [id number] Implanted:Qty: 1 on 06/30/2019 by Marky Rice [place] [facility] [place]A: Aorta [employer] CHANTAL [id number] 03/12/2024 [id number] 9 / / [id number] 2 Azur 35 Detachable 16mm 32cm - [id number] Implanted:Qty: 1 on 06/30/2019 by Marky Rice [place] [facility] [place]: Aorta [employer] CHANTAL [id number] 03/12/2024 45-4140636 2 / / [id number] 2 Azur 35 Detachable 16mm 32cm - [id number] Implanted:Qty: 1 on 06/30/2019 by Marky Rice [place] [facility] [place]A: Aorta [employer] CH[employer]AL [id number] 06/12/2023 45-1552559 2 / / [id number] F Azur Cx 35 Detechable Coil Implanted:Qty: 1 on 06/30/2019 by Marky Rice [place] [facility] [place]A: Aorta [employer] CHANTAL 04/12/2024 45-9659569 2 / / [id number] 2 Coil Azur .035 [id number] - [id number] Implanted:Qty: 1 on 06/30/2019 by Marky Rice [place] [facility] [place]A: Aorta [employer] CH[employer]AL [id number] 11/11/2023 45-04780153 0 / / [id number] L Azur Detachable Peripheral Coil Implanted:Qty: 1 on 06/30/2019 by Marky Rice [place] [facility] [place]A: Aorta [employer] : INTERVENTIONA 05/12/2024 45-1064398 9 / / [id number] Peripheral Coil System Detachable 35 Implanted:Qty: 1 on 06/30/2019 by Marky Rice [place] [facility] [place]A: Aorta 05/12/2024 45-8158387 2 / / [id number] 2 Coil Azur .035 [id number] - [id number] Implanted:Qty: 1 on 06/30/2019 by Marky Rice [place] [facility] [place]: Aorta [employer] CH[employer] [id number] 08/12/2023 45-55542 0 / / [id number] E Azur 35 Detachable 16mm 32cm - [id number] Implanted:Qty: 1 on 06/30/2019 by Marky Rice [place] [facility] [place]: Aorta [employer] CH[employer] 05/12/2024 45-47928 2 / / [id number] 2 Azur 35 Detachable 13mm 24cm - [id number] Implanted:Qty: 1 on 06/30/2019 by Marky Rice [place] [facility] [place]: Aorta [employer] [id number] 04/12/2024 45-44579 4 / / [id number] 2 Azur 35 Detachable 16mm 32cm - [id number] Implanted:Qty: 1 on 06/30/2019 by Marky Rice [place] [facility] [place]A: Aorta [employer] CH[employer]AL 05/12/2024 45-53400 2 / / [id number] 2 Azur 35 Detachable 13mm 24cm - [id number] Implanted:Qty: 1 on 06/30/2019 by Marky Rice [place] [facility] [place]A: Aorta [employer]AL 02/10/2024 45-28080 4 / / Coil Azur .035 [id number] - [id number] Implanted:Qty: 1 on 06/30/2019 by Marky Rice [place] [facility] [place]: Aorta [employer] [id number] 12/11/2023 45-27509 0 / / [id number] Azur 35 Detachable 13mm 24cm - [id number] Implanted:Qty: 1 on 06/30/2019 by Marky Rice [place] [facility] [place]A: Aorta [employer] [id number] 03/12/2024 45-94845 4 / / [id number] 2 Azur Cx Peripjheral Coil System Implanted:Qty: 1 on 06/30/2019 by Marky Rice MD [place] [facility] [place]A: Aorta [employer] CH[employer] 02/10/2024 45-47447 4 / / [id number] 2 Coil Azur .035 [id number] - [id number] Implanted:Qty: 1 on 06/30/2019 by Marky Rice [place] [facility] [place] Aorta [employer] [id number] 03/12/2024 45-84400 0 / / [id number] G Coil Framing Azur [id number] - [id number] Implanted:Qty: 1 on 06/30/2019 by Marky Rice [place] [facility] [place]A: Aorta [employer] [id number] 01/11/2024 45-89164 0 / / [id number] documented as of this encounter Procedures Procedure Name Priority Date/Time Associated Diagnosis Comments GLUCOSE METER, POINT OF CARE (ENTER/EDIT) Routine 11/05/2023 Lightheaded Hypotension, unspecified hypotension type documented in this encounter Results * GLUCOSE METER, POINT OF CARE (ENTER/EDIT) (11/05/2023) Glucose Meter Result 155 70 - 120 mg/dL Blood 11/05/2023 Junior Betts PA-C LAB POINT OF CARE TEST ENTER/EDIT ORDERABLES documented in this encounter Visit Diagnoses Diagnosis Lightheaded- Primary Dizziness and giddiness Hypotension, unspecified hypotension type documented in this encounter Advance Directives Latest Code Status on File Code Status Date Activated Date Inactivated Comments Full Code 06/30/2019 10:47 AM 07/01/2019 3:56 PM Th is order reflects the patients wishes and were consensually agreed upon. Code Status History Code Status Date Activated Date Inactivated Comments Full Code 10/25/2015 2:33 PM 10/31/2015 5:01 PM This order reflects the patients wishes and were consensually agreed upon. Question Answer Comments Discussion of Advance Directives occurred with: Patient Does the patient have a Living Will? No Does the patient have Health Care Power of Water Pump Assembler? No Full Code 07/01/2015 10:53 AM 07/02/2015 11:01 PM T his order reflects the patients wishes and were consensually agreed upon. Care Teams Fire Investigation Manager Relationship Specialty Start Date End Date John Multani MD [address] [place] [address] PCP - General Family Medicine 06/16/16 documented as of this encounter
--- OUTSIDE RECORDS SUMMARY | 2023-11-08 04:27 | External Medical Summary | Summary of Care ---
Author Name Unknown Organization [facility] Address [address] [place] [address] Phone [phone] Care Team Providers Care Lung Splitter Name Role Phone John Brown MD Primary Care Provider + Reason for Visit * Reason Onset Date Comments Medication Refill 11/05/2023 Encounter Details Date Type Department Care Team (Late st Contact Info) Description 11/05/2023 Refill Family Practice [facility] [address] [place] [address] John Brown MD [address] [place] [address] Incomplete bladder emptying; BPH with obstruction/lower urinary tract symptoms Allergies Active Allergy Reactions Criticality Noted Date Comments Pavel Inhibitors Cough Low 06/02/2010 Heparin 10/26/2015 HIT Percocet Edema airway,Hives High 11/17/1999 Reports "hives of the airway" with difficulty breathing with Percocet. documented as of this encounter (statuses as of 11/06/2023) Medications Medication Sig Dispensed Refills Start Date End Date Status ASPIRIN 81 MG PO TABS 1 tab daily with food 0 Active amoxicillin (AMOXIL) 500 MG CapsuleIndications :SBE (subacute bacterial endocarditis) prophylaxis candidate Take 4 pills by mouth 30-60 minutes prior to dental work 4 Cap 3 02/23/2016 Active CPAP every night at bedtime. 0 Active Metoprolol Succinate ER 25 MG Oral Tablet Extended Release 24 Hour (toPROL XL)Indications:Tho racic ascending aortic aneurysm (HCC),Chronic ischemic heart disease One tablet by mouth daily 90 Tablet 3 11/13/2022 Active oxyCODONE-Acetamin ophen 5-325 MG Oral Tablet (Percocet) 1 TAB orally every 6 hours As Needed for pain 20 Tablet 0 11/14/2022 Active COVID-19 mRNA Vaccine 12 years and above Pfizer 30 MCG/0.3 ML IM SUSP Inject into a large muscle. 0.3 mL 0 05/22/2023 Active Atorvastatin Calcium 80 MG Oral Tablet (Lipitor)Indicatio ns:Dyslipidemia, goal LDL below 100 Take 1 Tablet by mouth every afternoon. 90 Tablet 1 07/30/2023 Active traMADol HCl 50 MG Oral Tablet (Ultram)Indication s:Pain,Spinal stenosis of lumbar region, unspecified whether neurogenic claudication present Take 1 Tablet by mouth every 6 hours as needed for Pain, Severe. 90 Tablet 0 09/04/2023 Active Terazosin HCl 5 MG Oral Capsule (Hytrin)Indication s:Incomplete bladder emptying,BPH with obstruction/lower urinary tract symptoms Take 1 Capsule by mouth at bedtime. 90 Capsule 3 11/06/2023 Active Terazosin HCl 5 MG Oral Capsule (Hytrin)Indication s:Incomplete bladder emptying,BPH with obstruction/lower urinary tract symptoms Take 1 Capsule by mouth at bedtime. 90 Capsule 3 10/25/2022 11/05/2023 Discontinued (Refill) documented as of this encounter (statuses as of 11/06/2023) Active Problems Problem Noted Date Diagnosed Date [...] 01/2018 Well adult exam 11/16/2017 Overview: NEEDS [facility] [place]. John Vazquez (Jasbir Grain) is grandson. [...] 02/25/2014 History of atrial fibrillation 08/06/2013 Overview: [facility]: DC cardioversion back to NSR, associated with GI bleed CPAP (continuous positive airway pressure) gabriella andrade 10/27/2012 MARY (obstructive sleep apnea) 07/30/2012 Overview: RDI on baseline 05/16/12 was 61. Desaturations to 67% during REM, DME HEARING OFFICER, CPAP set at 14 cm C Flex [...] as of this encounter (statuses as of 11/06/2023) Resolved Problems Problem Noted Date Diagnosed Date [...] as of this encounter (statuses as of 11/06/2023) Immunizations Name Administration Dates Next Due COVID-19 [...] on file documented as of this encounter Functional Status Functional Status Response [...] No 10/25/2015 documented as of this encounter Miscellaneous Notes * Telephone Encounter - John Brown MD - 11/06/2023 10:05 PM EDT Signed Prescriptions: Disp Refills Terazosin HCl 5 MG Oral Capsule (Hytrin) 90 Cap*3 Sig: Take 1 Capsule by mouth at bedtime. Authorizing Provider: JOHN BROWN * Telephone Encounter - Sunita Tobar LPN - 11/05/2023 10:04 AM EDTPending Prescriptions: Disp Refills Terazosin HCl 5 MG Oral Capsule (Hytrin) 90 Cap*3 Sig: Take 1 Capsule by mouth at bedtime. * Telephone Encounter - Sunita Tobar LPN - 11/05/2023 10:03 AM EDT Did you pend patient's preferred pharmacy and medication before forwarding?yes Pharmacy: [facility] [facility] [place] Pending Prescriptions: Disp Refills Terazosin HCl 5 MG Oral Capsule (Hytrin) 90 Cap*3 Sig: Take 1 Capsule by mouth at bedtime. Last Visit: 10/04/2022 (in office), Visit date not found (telemedicine) Next Visit: 12/21/2023 If no future appointments scheduled, and last appointment is greater than a year ago, please schedule patient for a follow-up appointment Last date the medication was ordered: 10/25/2022 Is this request for a controlled substance?No Urine Drug Screen: Results for orders placed or performed in visit on 06/09/20 OPIOIDS/BENZO COMPLIANCE MONITORING W/INTERP Result Value COMPLIANCE INTERP (NOTE) URINE DRUG SCREEN RESULT Amphetamine NEGATIVE Benzodiazepines NEGATIVE Cannabinoids NEGATIVE Cocaine Metabolite NEGATIVE HYDROCODONE NEGATIVE METHADONE METABOLITE NEGATIVE Morphine / Codeine NEGATIVE OXYCODONE NEGATIVE COMMENT THE ABOVE SCREENING RESULTS ARE PRESUMPTIVE AND CAN ONLY BE USED FOR MEDICAL PURPOSES. CONFIRMATORY TESTING IS AVAILABLE UPON REQUEST. Cutoff Concentration URINE VALID INTERP NORMAL CREATININE VERNON 157 *Note: Due to a large number of results and/or encounters for the requested time period, some results have not been displayed. A complete set of results can be found in Results Review. Patient Phone Numbers Labs: Lab Results Component Value Date/Time CREAT 1.2 10/02/2022 02:54 PM CREAT 1.4 (H) 06/02/2020 10:23 AM CREAT 1.9 (H) 05/05/1996 02:55 PM POTASSIUM 4.9 10/02/2022 02:54 PM POTASSIUM 5.1 06/02/2020 10:23 AM POTASSIUM 4.4 05/05/1996 02:55 PM TSH 3.24 12/03/2015 12:55 PM LDLCALC 31 05/26/2022 02:51 PM LDLCALC 40 05/23/2019 10:13 AM LDLDIRECT 33 07/18/2021 03:53 PM LDLDIRECT NOT APPLICABLE 05/23/2019 10:13 AM LDLDIRECT 63 10/23/2013 02:28 PM ALT 13 07/18/2021 03:53 PM ALT 17 07/31/2016 12:28 PM HGBA1C 5.6 05/26/2022 02:51 PM HGBA1C 5.9 (H) 11/20/2018 03:16 PM * Telephone Encounter - Daria Levine LPN - 11/05/2023 9:18 AM EDT Patient is asking for a refill of his terazosin to be sent to [facility] documented in this encounter Plan of Treatment Upcoming Encounters Date Type Department Care Team (Late st Contact Info) Description 11/12/2023 2:40 PM EDT Office Visit [facility] [address] [place] [address] Oksana Delacruz CRNP [address] [place] [address] 12/21/2023 10:00 AM EDT Office Visit [facility] [address] [place] [address] Lizeth Biggs CRNP [address] [place] [address] 12/21/2023 10:40 AM EDT Laboratory Laboratory, [facility] [address] [place] [id number] HumphreysHenrietta seo [facility] [address] [place] [address] Health Maintenance Due Date Last Done Comments Albumin/Creatinine Ratio 1953 Depression Screening 05/22/2020 05/22/2019, 12/15/2016 (Declined) CKD PHOS USE SMARTSET 85580 07/18/2022 07/18/2021, 1 CKD HGB USE SMARTSET 31771 10/04/202310/04, 10/04/2022, 11/08/2021, Additional history exists DTaP,Tdap,and [...] this encounter Medical Devices Implanted Type Area Diesel Powerplant Mechanic Device Identifier Shelf Expiration Date Model / Serial / Lot Graft Bifur [id number] - [id number] - [id number] Implanted:Qty: 1 on 07/01/2015 by Marky Rice MD at OR [facility] [place] N/A: Aorta MEDTRON[employer] : VASCULAR 07/14/2016 [id number] / [id number] / Description:Bifurcated graft aorta to right iliac Limb Contralat [id number] - [id number] - [id number] Implanted:Qty: 1 on 07/01/2015 by Marky Rice MD at OR [facility] [place] Left: Iliac [employer] : VASCULAR 08/31/2016 [id number] / [id number] / Marker Coronary [facility] - [id number] Implanted:Qty: 1 on 10/25/2015 by Freddy Ernandez MD at OR [facility] [place] N/A: Aorta [employer] 08/12/2018 [facility] / / [id number] Sut Steel 6 M654g - [id number] Implanted:Qty: 4 on 10/25/2015 by Freddy Ernandez MD at OR [facility] [place] N/A: Sternum JNJ : [employer] 06/12/2020 M65 4G / / [id number] Graft Gelweave 8x15 [id number] - [id number] - [id number] Implanted:Qty: 1 on 10/25/2015 by Freddy Ernandez MD at OR [facility] [place] N/A: Innominate Artery [employer] : CARDIO SYS 09/12/2020 [id number] / [id number] / [id number] Description:portion used [place] Ptfe 6x6in X5 - [id number] Implanted:Qty: 1 on 10/25/2015 by Freddy Ernandez MD at OR [facility] [place] N/A: Aorta CR BARD : PERIPHERAL VASCULAR 01/11/2020 [id number] / / [id number] Description:portion used Valve Heart Aortic Epic 25mm - [id number] - [id number] Implanted:Qty: 1 on 10/25/2015 by Freddy Ernandez MD at OR [facility] [place] N/A: Aorta ST RHETT : CARDIOVASCULAR 01/16/2019 [id number] 5-00 / [id number] / Graft Gelweave 30x10 [id number] - [id number] - [id number] Implanted:Qty: 1 on 10/25/2015 by Freddy Ernandez MD at OR [facility] N/A: Aorta [employer] : CARDIO SYS 05/12/2020 165175 / [id number] / [id number] Description:portion used Coil Azur .035 22cfm11gx - [id number] Implanted:Qty: 1 on 06/30/2019 by Marky Rice MD at OR [facility] [place] N/A: Aorta [employer] CHANTAL [id number] 04/12/2024 45-81352 0 / / [id number] G Azur 35 Detachable 35mm 39cm - [id number] Implanted:Qty: 1 on 06/30/2019 by Marky Rice MD at OR [facility] N/A: Aorta [employer] CHANTAL [id number] 01/10/2023 [id number] 9 / / [id number] Azur 35 Detachable 35mm 39cm - [id number] Implanted:Qty: 1 on 06/30/2019 by Marky Rice MD at OR [facility] N/A: Aorta [employer] CHANTAL [id number] 03/12/2024 [id number] 9 / / [id number] 2 Azur 35 Detachable 16mm 32cm - [id number] Implanted:Qty: 1 on 06/30/2019 by Marky Rice MD at OR [facility] N/A: Aorta [employer] CH[employer] [id number] 03/12/2024 45-4237352 2 / / [id number] 2 Azur 35 Detachable 16mm 32cm - [id number] Implanted:Qty: 1 on 06/30/2019 by Marky Rice MD at OR [facility] N/A: Aorta [employer] [id number] 06/12/2023 45-91430 2 / / [id number] F Azur Cx 35 Detechable Coil Implanted:Qty: 1 on 06/30/2019 by Marky Rice MD at OR [facility] N/A: Aorta [employer] CHANT[employer] 04/12/2024 45-29406 2 / / [id number] 2 Coil Azur .035 [id number] - [id number] Implanted:Qty: 1 on 06/30/2019 by Marky Rice MD at OR [facility] N/A: Aorta [employer] CH[employer]AL [id number] 11/11/2023 [id number] 0 / / [id number] Azur Detachable Peripheral Coil Implanted:Qty: 1 on 06/30/2019 by Marky Rice MD at OR [facility] N/A: Aorta [employer] : INTERVENTIONA 05/12/2024 45-33364 9 / / [id number] Peripheral Coil System Detachable 35 Implanted:Qty: 1 on 06/30/2019 by Marky Rice MD at OR [facility] N/A: Aorta 05/12/2024 45-38548 2 / / [id number] 2 Coil Azur .035 [id number] - [id number] Implanted:Qty: 1 on 06/30/2019 by Marky Rice MD at OR [facility] N/A: Aorta [employer] [id number] 08/12/2023 45-81578 0 / / [id number] Azur 35 Detachable 16mm 32cm - [id number] Implanted:Qty: 1 on 06/30/2019 by Marky Rice MD at OR [facility] N/A: Aorta [employer] CHANTAL 05/12/2024 45-85399 2 / / [id number] 2 Azur 35 Detachable 13mm 24cm - [id number] Implanted:Qty: 1 on 06/30/2019 by Marky Rice MD at OR [facility] N/A: Aorta [employer] [id number] 04/12/2024 [id number] 4 / / [id number] 2 Azur 35 Detachable 16mm 32cm - [id number] Implanted:Qty: 1 on 06/30/2019 by Marky Rice MD at OR [facility] N/A: Aorta [employer] 05/12/2024 [id number] 2 / / [id number] 2 Azur 35 Detachable 13mm 24cm - [id number] Implanted:Qty: 1 on 06/30/2019 by Marky Rice MD at OR [facility] N/A: Aorta [employer] 02/10/2024 [id number] 4 / / Coil Azur .035 [id number] - [id number] Implanted:Qty: 1 on 06/30/2019 by Marky Rice MD at OR [facility] N/A: Aorta [employer] [id number] 12/11/2023 45-42158 0 / / [id number] Azur 35 Detachable 13mm 24cm - [id number] Implanted:Qty: 1 on 06/30/2019 by Marky Rice MD at OR [facility] N/A: Aorta [employer] [id number] 03/12/2024 45-46220 4 / / [id number] 2 Azur Cx Peripjheral Coil System Implanted:Qty: 1 on 06/30/2019 by Marky Rice MD at OR [facility] N/A: Aorta [employer] CH[employer] 02/10/2024 45-00899 4 / / [id number] 2 Coil Azur .035 [id number] - [id number] Implanted:Qty: 1 on 06/30/2019 by Marky Rice MD at OR [facility] Aorta [employer] CH[employer]AL [id number] 03/12/2024 45-77823 0 / / [id number] G Coil Framing Azur [id number] - [id number] Implanted:Qty: 1 on 06/30/2019 by Marky Rice MD at OR [facility] N/A: Aorta [employer] [id number] 01/11/2024 45-87963 0 / / [id number] H documented as of this encounter Visit Diagnoses Diagnosis Incomplete bladder emptying BPH with obstruction/lower urinary tract symptoms Hypertrophy of prostate with urinary obstruction and other lower urinary tract symptoms (LUTS) documented in this encounter Advance Directives Latest [...] the patient have Health Care Power of Security Clerk? No Full Code 07/01/2015 10:53 AM 07/02/2015 11:01 PM T his order reflects the patients wishes and were consensually agreed upon. Care Teams Lung Splitter Relationship Specialty Start Date End Date John Brown MD [address] [place] [address] PCP - General Family Medicine 06/16/16 documented as of this encounter
[2023-11-08 05:02] LABS: Basophils # (auto) 0.05 K/uL (0.00-0.20); Basophils % (auto) 0.7 %; Eosinophils # (auto) 0.15 K/uL (0.00-0.50); Hematocrit (blood only) 34.8 % (42.0-52.0); Hemoglobin 11.6 g/dl (14.0-18.0); Immature Granulocytes # (auto) 0.04 K/uL (0.01-0.20); Immature Granulocytes % (auto) 0.5 %; Lymphocytes % (auto) 17.6 %; Mean Corpuscular Hemoglobin 31.8 pg (25.0-34.0); Mean Corpuscular Hgb Conc 33.3 g/dL (32.0-36.0); Mean Corpuscular Volume 95.3 fL (80.0-100.0); Mean Platelet Volume 9.6 fL (9.4-12.4); Monocytes # (auto) 0.61 K/uL (0.11-0.59); Monocytes % (auto) 8.2 %; Neutrophils # (auto) 5.25 K/uL (1.40-6.50); Platelet Count 133 K/uL (130-400); RDW Coefficient of Variation 13.2 % (11.5-14.5); RDW Standard Deviation 46.8 fL (36.4-46.3); Red Blood Count 3.65 M/uL (4.70-6.10)
[2023-11-08 05:22] LABS: BUN Creatinine Ratio 23.5 (10-20); Calcium 8.9 mg/dl (8.6-10.3); Chol HDL Ratio 2.9 (0-5); Creatinine Clr Calc Pharmacy 40.2 ml/min; Est GFR (African American) 63.7 ml/min; Magnesium 1.8 mg/dl (1.7-2.4); Potassium 3.9 mmol/L (3.5-5.1)
--- NOTE | 2023-11-08 06:55 | XRay Report ---
ORBIT RADIOGRAPHS 3 VIEWS HISTORY: pre-MRI screening. COMPARISON: Head CT November 07, 2023. FINDINGS: There are no radiopaque foreign bodies identified within the orbits. IMPRESSION: No radiopaque foreign bodies identified within the orbits. ACT 112: Negative or not required by law. Electronically signed by: Josh Ortega M.D. 11/08/2023 6:53 AM
[2023-11-08 07:16] LABS: Estimated Average Glucose 117 mg/dl; Hemoglobin A1C 5.7 % (4.5-5.6)
--- NOTE | 2023-11-08 07:30 | XRay Report ---
XR chest 1V portable CLINICAL HISTORY: weakness, r/o pna COMPARISON STUDY: Chest CT June 10, 2013. Chest CT November 05, 2023. FINDINGS: There is no pneumothorax or pleural effusion. There are median sternotomy wires. Interstiti al thickening is likely chronic. No consolidation is identified. An 8 mm left midlung nodule is uncha nged. This is likely benign. Cardiomediastinal silhouette is stable. IMPRESSION: 1. No acute cardiopulmonary findings. 2. Mild interstitial thickening, likely chronic. ACT 112: Negative or not required by law. Electronically signed by: Josh Ortega M.D. 11/08/2023 7:29 AM
--- NOTE | 2023-11-08 07:40 | Hospitalist Progress Note ---
Date of Service November 08, 2023 Assessment & Plan (1) Weakness: Plan: Ambulatory dysfunction Patient is 88-year-old male with PMH HTN, dyslipidemia, CAD s/p CABG, CKD III, AAA s/p repair, MARY, BPH, RBBB, history aortic valve replacement, history of atrial fibrillation s/p cardioversion, and others as below presented to ER with complaint of weakness. Upon arrival to ER staff report patient was able to move upper extremities however appeared very weak, and was only able to wiggle his toes and feet and was unable to lift his legs off the bed. During ER course patient now able to move all of extremities and feels is close to his baseline. He ambulated to bathroom with nurse without assistance. In ER vitals stable. No significant electrolyte abnormality. High-sensitivity troponin negative. 11/05/2023 TSH: 0.9 CT head: There is no hemorrhage, mass effect, or evidence of acute territorial ischemia by CT criteria. Obtain CXR to r/o pneumonia UA pending Blood cultures pending R/O TIA, CVA Tele to monitor for arrhythmias Lipids, A1c, CBC, BMP in a.m. MRI brain Ultrasound carotids carotids Echo with bubble study Fall precautions, aspiration precautions PT/OT consult Continue aspirin, atorvastatin Neurology consult (2) Hypertension: Plan: Stable Continue metoprolol succinate (3) Hyperlipidemia: Plan: Continue atorvastatin (4) CAD (coronary artery disease): Plan: S/P CABG Continue aspirin, atorvastatin, metoprolol succinate (5) Stage 3 chronic kidney disease: Plan: Cr: 1.39. Baseline 1.2 Monitor renal functions, avoid nephrotoxic agents for possible (6) Carotid stenosis, bilateral: Plan: 50-69% of the right ICA; <50% stenosis of the left ICA per 12/2021 carotid duplex Carotid duplex pending (7) BPH (benign prostatic hyperplasia): Plan: Continue terazosin (8) AAA (abdominal aortic aneurysm): Plan: S/P endovascular repair (2014) with subsequent transcaval type 2 endoleak repair on 06/30/19. DVT Prophylaxis SCDs DNR/DNI as per discussion with pt Follows with Dr Multani for routine care Pt was seen and care coordinated with Dr Miller. See addendum I spent a total of 76 minutes reviewing notes, outpatient records, labs, medication, coordinating, documenting and providing care for this patient excluding time spent in the performance of separately billed services. Admission and Anticipated Discharge Date Admission Date: November 07, 2023 Results & Data Results & Data Vital Signs (Past 12 Hours) Vital Signs Temp Pulse Pulse Resp BP Pulse Ox O2 Del Method 11/08/23 07:38 68 11/08/23 03:56 36.9 C 72 18 108/67 97 Room Air 11/07/23 23:49 36.5 C 71 18 93/63 L 96 Room Air 11/07/23 23:08 76 11/07/23 19:57 36.8 C 71 17 119/86 95 Room Air
--- NOTE | 2023-11-08 08:10 | XRay Report ---
KUB CLINICAL HISTORY: for MRI COMPARISON STUDY: CTA of the abdomen and pelvis August 07, 2013. Lumbar spine radiographs January 19, 2020. FINDINGS: Bifurcated endovascular aortoiliac stent graft is in place. Multiple linear metallic densit ies project over the abdomen, possibly within an aneurysm sac. These are unchanged since prior lumbar spine radiographs and may reflect embolization coils. No unexpected radiopaque foreign bodies within the abdomen or pelvis. IMPRESSION: No contraindication to MRI within the abdomen or pelvis. ACT 112: Negative or not required by law. Electronically signed by: Josh Ortega M.D. 11/08/2023 8:08 AM
[2023-11-08] MEDS: METOPROLOL SUCC 25MG EXT REL TAB PO SCH (08:34)
[2023-11-08] MEDS: ASPIRIN 81 MG ECTAB PO SCH (08:34)
--- NOTE | 2023-11-08 13:09 | Neurology Consultation ---
Date of Consultation November 08, 2023 Assessment & Plan (1) Weakness: Patient presents with transient whole body weakness, this pattern is not consistent with stroke. Suspect this was sleep paralysis as he was sitting in a recliner when it occurred. Otherwise he is back to baseline, no further neurologic workup recommended. Patient should follow-up with outpatient neurology if it recurs or becomes a pattern. Telehealth Consultation Telehealth Information Telehealth Information: I performed this visit using a real-time telehealth connection between my location and the patients location (). After connecting through interactive tele-video, patient was identified by name and date of and/or wristband check.Patient (or authorized healthcare dental sales representative) was informed that this was a telemedicine visit and it was being conducted confidentially over secure lines. My office door was closed and no one else was present in the room with me.Patient (or authorized healthcare dental sales representative) provided consent to proceed with the visit, expressed an understanding of privacy and security of the telemedicine visit, and gave permission to have a hospital dental sales representative in the room in order to assist with the visit and to conduct portions of the visit, as needed. I informed the patient (or authorized healthcare dental sales representative) that I reviewed their record and presented the opportunity for them to ask any questions regarding the visit today. The patient agreed to participate. History of Present Illness Reason for Consultation: Transient weakness Requesting Physician: Dr. Apodaca Attending Physician: Lurdes Apodaca MD History of Present Illness Dex Linares is an 88 yo M presenting with a transient episode of weakness. He was in his recliner chair yesterday and suddenly was unable to move his arms or legs for a few minutes. He denies sleeping/napping around the time of the incident. Since then he has felt fine with no further weakness. He did not lose consciousness during the episode and it has never happened to him before. Of note he was recently admitted for bradycardia but does not think his heart rate was low at the time of this episode. Allergies Allergy/AdvReac Type Severity Reaction Status Date / Time oxycodone Allergy Intermediate Hives in Verified 11/14/22 06:40 his throat heparin AdvReac Severe HIT Verified 11/07/23 18:24 CLAUDIA Inhibitors AdvReac Mild Cough Verified 11/14/22 06:40 Home Medications Medication Instructions Recorded Confirmed Type acetaminophen 325 mg tablet 650 mg PO QID PRN Pain 11/07/22 11/07/23 History aspirin 81 mg tablet 81 mg PO QAM 11/07/22 11/07/23 History atorvastatin 80 mg tablet 80 mg PO HS 11/07/22 11/07/23 History metoprolol succinate 25 mg 25 mg PO QAM 11/07/22 11/07/23 History tablet,extended release 24 hr terazosin 5 mg capsule 5 mg PO HS 11/07/22 11/07/23 History tramadol 50 mg tablet 50 mg PO Q6H PRN Pain 11/07/22 11/07/23 History Patient History Medical History (Updated 11/07/23 @ 17:39 by Tomeka Boswell PA-C) CAD (coronary artery disease) History of heparin-induced thrombocytopenia Per 05/10/22 vascular note AAA (abdominal aortic aneurysm) S/p endovascular repair (2014) with subsequent transcaval type 2 endoleak repair on 06/30/19. 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 [facility] assessment 2018 [facility] record from [facility] 2018 showed Grade I view with Glidescope #4 Carotid stenosis, bilateral 50-69% of the right ICA; <50% stenosis of the left ICA per 12/2021 carotid duplex History of atrial fibrillation 2012 had cardioversion Poor historian pt unable to answer health care questions correctly, information obtained from [facility] record BPH (benign prostatic hyperplasia) Hyperlipidemia Hypertension Sleep apnea does not use CPAP since losing weight Kidney stone Ascending aortic aneurysm s/p ascending aorta replacement, AVR (bioprosthetic) (also had 2 vessel CABG at same time)- 10/2015 Surgical History History of cardioversion 07/2013 @ [facility] due to rapid a fib History of esophagogastroduodenoscopy (EGD) History of colonoscopy History of cardiac cath 07/2015 @ [facility]--no stents History of surgery 06[place] [facility] [place]olization S/P percutaneous abdominal aortic aneurysm repair 06/2015 @ [facility] [place] History of thoracic aortic aneurysm repair 11/2015 @ [facility] [place] (same time as CABG) History of coronary artery bypass graft x 2 11/2015 @ [facility] [place] (with thoracic aortic aneurysm repair at same time) History of hemorrhoidectomy 11/2005 S/P AVR (aortic valve replacement) 10/2015 @ [facility] [place] History of arthroscopy of right knee History of lithotripsy History of tooth extraction full upper/lower denture Family History Other No family history of adverse response to anesthesia Social History Smoking Status: Never smoker Second Hand Exposure: No; Do You Dip or Chew Tobacco: No; Hx Alcohol Use: No Hx Substance Use: No Preferred Language: Armenian Communication Ability: Effective Methods And Procedures Analyst Required: No Beliefs That Will Affect Care: None Current Living Situation: Spouse Feels Safe at Home: Yes Safety Concerns: Feels Safe At This Time Assistive Devices: Denture - Upper, Glasses and Hearing Aid - Bilateral Review of Systems +Weakness, resolved Physical Exam Neurological Examination: Mental Status: Awake and alert. Oriented to person, place, and time. Fluent. Comprehension intact. Affect appropriate. Cranial Nerves: II: pupils 3/3 to 2/2 III/IV/: Versions intact without nystagmus, no gaze preference. V: Facial sensation symmetric to light touch VII: Facial expression symmetric VIII: Hearing intact to voice IX/X: Palate elevates symmetrically XI: Shoulder shrug symmetric XII: Tongue midline Motor: Strength was symmetric and antigravity throughout. Pronator drift was absent. There were no abnormal movements. Coordination: Finger to nose and heel to watt were intact. Reflexes: Unable to assess over telemedicine Results & Data Vital Signs (Past 12 Hours) Vital Signs Temp Pulse Pulse Resp BP Pulse Ox O2 Del Method 11/08/23 11:58 36.8 C 65 16 135/80 95 Room Air 11/08/23 07:59 36.7 C 64 16 133/74 95 Room Air 11/08/23 07:38 68 11/08/23 03:56 36.9 C 72 18 108/67 97 Room Air Laboratory Results Abnormal lab results 11/07/23 11/07/23 11/08/23 Range/Units 12:53 20:05 04:13 RBC 3.96 L 3.65 L (4.70-6.10) M/uL Hgb 12.8 L 11.6 L (14.0-18.0) g/dl Hct 37.3 L 34.8 L (42.0-52.0) % RDW Std Deviation 46.8 H (36.4-46.3) fL Neut # (Auto) 6.51 H (1.40-6.50) K/uL Lymph # (Auto) 0.94 L (1.20-3.40) K/uL [place] # (Auto) 0.62 H 0.61 H (0.11-0.59) K/uL BUN 32 H 28 H (6-23) mg/dl BUN/Creatinine Ratio 23.0 H 23.5 H (10-20) Glucose 103 H (70-99(Fasting)) mg/dl Hemoglobin A1c 5.7 H (4.5-5.6) % Triglycerides 160 H (0-150) mg/dl VLDL Cholesterol, Calc 32 H (0-30) mg/dl Urine Blood 1+ H (Negative) Urine RBC (Auto) 5-10 H (0-4) /hpf Diagnostic Findings CT head - unremarkable
[2023-11-08] MEDS: GADOBUTROL 65ML VIAL IV ONE (14:54)
--- NOTE | 2023-11-08 15:53 | Discharge Summary ---
Discharge Summary Date of Service November 08, 2023 Notes For Next Care Provider Patient declined further evaluation and requests going home. Neurologically intact. Medication Changes From Visit Discontinue terazosin 5mg Discontinue tramadol 50mg Admission HPI Per Admitting Provider Patient is 88-year-old male with PMH HTN, dyslipidemia, CAD s/p CABG, CKD III, AAA s/p repair, MARY, BPH, RBBB, history aortic valve replacement, history of atrial fibrillation s/p cardioversion, and others as below presented to ER with complaint of weakness. History obtained from patient, patient's daughter, outpatient chart review. On 11/05/2023 patient was seen in urgent care for lightheadedness nausea and recorded BP there was 70/38 and patient was referred to ER. Was seen at [facility] ER on 11/05/2023 was given 500 mL NSS and BPs had improved after IVF and chest x-ray was without pneumonia, UA not consistent with infection, negative SARS-CoV-2, influenza and RSV PCR. Patient was discharged home. Patient states has been feeling at his baseline. Patient states woke up this morning and felt "wiped out". He was able to get himself dressed. He states he walked to his reclining chair. States when walking to chair felt a little lightheaded and had some nausea. Patient states that there a while and was unable to move his legs to get up. He lives at home with elderly . Reports they called daughter who then called EMS. Upon arrival to ER staff report patient was able to move upper extremities however appeared very weak, and was only able to wiggle his toes and feet and was unable to lift his legs off the bed. Patient denies headache, vision changes, speech changes, dysphagia. He did not see any extremity pain. During ER course patient now able to move all of extremities and feels is close to his baseline. He ambulated to bathroom with nurse without assistance. Last BM couple days ago. Denies fever/chills, diaphoresis, vomiting, diarrhea, ROUSE, dizziness, syncope, neck pain, CP, SOB, orthopnea, palpitations, cough, sore throat, rhinorrhea, abdominal pain, paresthesias, extremity edema, rashes, urinary symptoms. Admission Exam Per Admitting Provider General: no distress, WDWN Head: normocephalic, atraumatic Eyes: PERRL, EOM's intact, conjunctiva non-injected, anicteric ENT: +hard of hearing, normal inspection external ears, nose, mucous membranes moist Neck: supple, trachea midline Lungs: clear, no respiratory distress, no wheezing/rhonchi/rales CV: RRR, no murmur, no pretibial edema Abd: normal BS, soft, non-tender Ext: no cyanosis, no calf tenderness Neuro: A&O x 3, normal affect, no nystagmus, facial sensation is intact and symmetric, face is strong and symmetric, soft palate elevates symmetrically, no dysarthria, shoulder shrug intact, tongue is midline, normal movement, no fasciculations. BUE 4/5 strength bilaterally, BLE 4/5 strength bilaterally, sensation to light touch intact Skin: warm, dry Principal Dx & Hospital Course #1 = Principal Diagnosis (1) Weakness: (2) Hypertension: (3) Hyperlipidemia: (4) CAD (coronary artery disease): (5) Stage 3 chronic kidney disease: (6) Carotid stenosis, bilateral: (7) BPH (benign prostatic hyperplasia): (8) AAA (abdominal aortic aneurysm): Plan Mr. Linares 88-year-old male with PMH HTN, dyslipidemia, CAD s/p CABG, CKD III, AAA s/p repair, MARY, BPH, RBBB, history aortic valve replacement, history of atrial fibrillation s/p cardioversion, and others as below presented to ER with complaint of weakness. Upon arrival to ER staff report patient was able to move upper extremities however appeared very weak, and was only able to wiggle his toes and feet and was unable to lift his legs off the bed. During ER course patient now able to move all of extremities and feels is close to his baseline. He ambulated to bathroom with nurse without assistance. #Acute weakness episode, resolved #Intermittent Hypotension #Acute encephalopathy, resolved In ER vitals stable. No significant electrolyte abnormality. High-sensitivity troponin negative. 11/05/2023 TSH: 0.9 CT head: There is no hemorrhage, mass effect, or evidence of acute territorial ischemia by CT criteria. MRI: Dopplers: No clear source of infection Echo with bubble study unremarkable for outlet obstruction or source of symptoms Neurologically at baseline, stable blood pressures, no orthostasis Patient requesting to leave, daughter at bedside and agreeable Continue aspirin, atorvastatin #Normocytic anemia -Stable trend, no signs of bleed. abdomen nontender, nonpulsatile Anemia labs pending, will call daughter and update upon results #CAD (coronary artery disease)s/p CABG #HTN #HLD Stable, no pauses, bradycardia on tele, echo without any acute process Continue aspirin, atorvastatin, metoprolol succinate # Stage 3 chronic kidney disease: At baseline on discharge, 1.19 Monitor renal functions, avoid nephrotoxic agents for possible #Carotid stenosis, bilateral: 50-69% of the right ICA; <50% stenosis of the left ICA per 12/2021 carotid duplex Carotid duplex pending #BPH (benign prostatic hyperplasia): Discontinue terazosin given intermittent hypotension, often positional per daughter Follow up with PCP to discuss management of LUTS #AAA (abdominal aortic aneurysm): S/P endovascular repair (2014) with subsequent transcaval type 2 endoleak repair on 06/30/19. -Stable BP, stable hgb Discharge Exam Constitutional WD/WN, vitals as above Respiratory normal respiratory effort, lungs clear to auscultation Cardiovascular RRR, no murmur, no edema Gastrointestinal (Abdomen) normal bowel sounds, soft, nontender, no hepatosplenomegaly Neurologic PERRL, EOMI, accommodation nl, no face palsy, no dysarthria Updated Medication List Medication Instructions Recorded Confirmed Type acetaminophen 325 mg tablet 650 mg PO QID PRN Pain 11/07/22 11/07/23 History aspirin 81 mg tablet 81 mg PO QAM 11/07/22 11/07/23 History atorvastatin 80 mg tablet 80 mg PO HS 11/07/22 11/07/23 History metoprolol succinate 25 mg 25 mg PO QAM 11/07/22 11/07/23 History tablet,extended release 24 hr Hospital Stay Data Consultations 11/07/23 15:19 ED Decision to Admit Stat 11/07/23 18:16 Consult Neurology Routine Diagnostic Imagining Performed 11/07/23 13:22 CT head/brain wo con Stat 11/08/23 00:00 MR brain wo/w con Routine 11/08/23 07:00 US carotid doppler BI Routine Pending Results Patient Have Any Pending Studies at Discharge: No Discharge Instructions Given to Patient (Per Discharging Provider) You were admitted for whole body weakness and lethargy with no clear precipitating cause. There was also note of intermittent low blood pressures. You were evaluated by neurology who also does not feel your symptoms are central origin, or related to your brain. There is no clear sign of infection and your symptoms seem self limited. There is concern with the use of two of your home medications that may contribute to these symptoms -Tramadol can cause low pressures, altered mental status, and delirium/weakness -Terazosin can cause positional hypotension (low blood pressure) We will discontinue these medications and recommend follow up with your primary doctor to monitor and trial alternatives for urinary symptoms and pain management. Total Time Total Time Spent Total Time Spent (In Minutes): 45
[2023-11-08 16:01] LABS: Hematocrit (blood only) 38.9 % (42.0-52.0); Hemoglobin 12.7 g/dl (14.0-18.0); Mean Corpuscular Hemoglobin 31.4 pg (25.0-34.0); Mean Corpuscular Hgb Conc 32.6 g/dL (32.0-36.0); Mean Corpuscular Volume 96.3 fL (80.0-100.0); Mean Platelet Volume 9.4 fL (9.4-12.4); Platelet Count 138 K/uL (130-400); RDW Coefficient of Variation 13.2 % (11.5-14.5); RDW Standard Deviation 46.9 fL (36.4-46.3); Red Blood Count 4.04 M/uL (4.70-6.10); White Blood Count 6.91 K/ul (4.8-10.8)
--- NOTE | 2023-11-08 16:04 | Ultrasound Report ---
CAROTID ARTERY ULTRASOUND CLINICAL HISTORY: h/o stenosis COMPARISON STUDY: None. TECHNIQUE: Real-time, grayscale, and color Doppler sonography of the carotid and vertebral arteries w as performed. Images were viewed in the transverse and longitudinal planes. FINDINGS: There is moderate atherosclerotic plaque present within the bilateral common carotid and internal car otid artery. Velocity measurements are listed below. COMMON CAROTID PEAK SYSTOLIC VELOCITY (CM/S): RIGHT 62 LEFT 89 ICA PEAK SYSTOLIC VELOCITY (CM/S): RIGHT 127 LEFT 75 Systolic ratio between the right internal to common carotid artery was mildly elevated at 2. Antegrade flow is seen in the vertebral arteries. The external carotid arteries are patent. IMPRESSION: Moderate atherosclerotic plaque. Findings suggestive of 50-69% stenosis of the proximal right internal carotid artery. ACT 112: Negative or not required by law. Electronically signed by: Josh Ortega M.D. 11/08/2023 4:02 PM
--- NOTE | 2023-11-08 16:54 | Magnetic Resonance Report ---
MRI OF THE BRAIN WITHOUT AND WITH IV CONTRAST CLINICAL HISTORY: Weakness. Difficulty walking. r/o tia/stroke COMPARISON STUDY: Head CT November 07, 2023. TECHNIQUE: Utilizing a 1.5 Cristal magnet and dedicated coil, multiplanar, multiecho imaging of the br ain was performed pre and postcontrast administration. IV administration of 7.5 mL of Gadavist contr ast was uneventful. FINDINGS: There are no foci of restricted diffusion to suggest acute infarct. No acute intracranial h emorrhage, midline shift or mass effect is present. Ventricular system is unremarkable. Basal cistern s are patent. Prominence of the extra-axial spaces is due to atrophy. There is no intracranial mass o r pathologic enhancement. Subcortical signal abnormality within the bilateral parietal lobes favors s mall old infarcts. Calvarial signal is normal. There is no evidence for sinusitis. Small amount of fl uid within the left mastoid air cells. IMPRESSION: 1. No acute intracranial findings. 2. No intracranial mass or pathologic enhancement. 3. 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 ACT 112: Negative or not required by law. Electronically signed by: Josh Ortega M.D. 11/08/2023 4:53 PM
[2023-11-08 17:23] LABS: Ferritin 159.3 ng/ml (8-388)
[2023-11-08 17:24] LABS: Folate (Folic Acid),Ser orPlas 10.4 ng/ml (>5.38)
== END 2023-11-08 16:32 | disposition home or self-care (01) | DRG 948 ==
LOC: ED 12:32 → SUATTDRO 16:20 → 2W 16:20 → INTOOBSV 16:20 → 2W 17:29